=== PATIENT | female | born 2000 | race Caucasian/White ===

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

== ENCOUNTER → 2019-04-17 | Outpatient (CLI) | payer OTHER ==
[~2019-04-17] MED LIST changes: +ESCI20 PO; +LAMO100 PO; +LORA1 PO; +TRAZ100 PO
[2019-04-17 17:20] LABS: U Amphetamine Screen Not Detected; U Barbituate Screen Not Detected; U Benzodiazapine Screen Not Detected; U Buprenorphine Screen Not Detected; U Cannabinoids Screen DETECTED; U Cocaine Screen Not Detected; U Methadone Screen Not Detected; U Methamphetamine Screen Not Detected; U Opiates Screen Not Detected; U Oxycodone Screen Not Detected; U Phencyclidine Screen Not Detected; U Propoxyphene Screen Not Detected
== END ==
LOC: LAB SHORT 16:35 → LAB 16:35
PROVIDERS: Psychiatry & Neurology Psychiatry
DX: Z51.81 Encounter for therapeutic drug level monitoring (principal); Z79.899 Other long term (current) drug therapy
CPT/HCPCS: G0480

== ENCOUNTER → 2019-09-26 | Outpatient (CLI) | payer OTHER ==
[2019-09-26 19:21] LABS: U Amphetamine Screen DETECTED; U Barbituate Screen Not Detected; U Benzodiazapine Screen Not Detected; U Buprenorphine Screen Not Detected; U Cannabinoids Screen DETECTED; U Cocaine Screen Not Detected; U Methadone Screen Not Detected; U Methamphetamine Screen Not Detected; U Opiates Screen Not Detected; U Oxycodone Screen Not Detected; U Phencyclidine Screen Not Detected; U Propoxyphene Screen Not Detected
== END ==
LOC: LAB 17:25 → LAB SHORT 17:25
PROVIDERS: Registered Nurse
DX: Z51.81 Encounter for therapeutic drug level monitoring (principal); Z79.899 Other long term (current) drug therapy

== ENCOUNTER 2024-12-04 10:10 | Observation (INO) | payer OTHER ==
[~2024-12-04] VITALS: Ht 170.2 cm; Wt 127.0 kg
[~2024-12-04 10:10] MED LIST changes: +ARIPIPRAZOLE2 M1 PO; +HYDPAM50 PO
[2024-12-04 11:03] VITALS: BP 99/62
[2024-12-04 11:34] LABS: Source, Urine Clean Catch
[2024-12-04 11:41] LABS: Appearance, Urine Hazy (Clear); Bilirubin, Urine Neg (Neg); Blood, Urine 1+ (Neg); Color, Urine Yellow (P-Yellow); Glucose Qualitative, Urine Neg (Neg); Ketones, Urine Neg (Neg); Leukocyte Esterase, Urine 2+ (Neg); Nitrite, Urine Neg (Neg); Protein, Urine Neg (Neg); Urobilinogen, Urine NORM (Normal)
[2024-12-04 11:53] LABS: Amorphous Mod (0-Heavy); Bacteria Many /hpf; Squamous Epithelial Cells Many /hpf (Few)
[2024-12-04 11:54] LABS: U Amphetamine Screen Not Detected; U Barbituate Screen Not Detected; U Benzodiazapine Screen Not Detected; U Buprenorphine Screen Not Detected; U Cannabinoids Screen DETECTED; U Cocaine Screen DETECTED; U Methadone Screen Not Detected; U Methamphetamine Screen Not Detected; U Opiates Screen Not Detected; U Phencyclidine Screen Not Detected
[2024-12-04 11:55] LABS: U Oxycodone Screen Not Detected
[2024-12-04 12:05] LABS: BASOPHILS ABSOLUTE AUTO 0.03 K/mm3 (0.00-0.23); BASOPHILS PERCENT AUTO 0 % (0-2); EOSINOPHILS ABSOLUTE AUTO 0.17 K/mm3 (0.00-0.68); EOSINOPHILS PERCENT AUTO 2 % (0-6); Hematocrit 35.7 % (33.0-51.0); Hemoglobin 11.7 g/dL (11.5-16.0); IMMATURE GRAN ABSOLUTE AUTO 0.04 K/mm3 (0.00-0.10); IMMATURE GRAN PERCENT AUTO 0 % (0-1); LYMPHOCYTES ABSOLUTE AUTO 2.53 K/mm3 (0.84-5.20); LYMPHOCYTES PERCENT AUTO 26 % (21-46); MONOCYTES ABSOLUTE AUTO 0.38 K/mm3 (0.16-1.47); MONOCYTES PERCENT AUTO 4 % (4-13); Mean Corpuscular HGB 30.4 pg (26.0-34.0); Mean Corpuscular HGB Conc 32.8 g/dL (31.5-36.5); Mean Corpuscular Volume 93 fL (80-100); Mean Platelet Volume 9.8 fL (9.1-12.4); NEUTROPHILS ABSOLUTE AUTO 6.53 K/mm3 (1.96-9.15); NEUTROPHILS PERCENT AUTO 68 % (41-73); Platelet Count 253 K/mm3 (150-400); RDW Coefficient Variation 12.2 % (11.7-14.2); RDW Standard Deviation 41.7 fL (35.1-46.3); Red Blood Cell Count 3.85 M/mm3 (3.80-5.20); White Blood Cell Count 9.68 K/mm3 (4.00-11.30)
[2024-12-04 12:32] LABS: Acetaminophen, Random <2.0 ug/mL (10.0-30.0); Ethanol (Alcohol), Blood, Med <3 mg/dL; Salicylate <1.7 mg/dL (2.8-20.0)
[2024-12-04 12:33] LABS: Alanine Aminotransfer (ALT/SGP 26 U/L (12-78); Albumin, Blood 3.6 g/dL (3.4-5.0); Albumin/Globulin Ratio 1.3 (0.8-1.8); Alk Phos 57 U/L (50-136); Anion Gap 7 mmol/L (3-11); Aspartate Aminotrans (AST/SGOT 14 U/L (12-37); Bilirubin, Total 0.4 mg/dL (0.1-1.0); Blood Urea Nitrogen 6 mg/dL (8-24); Bun/Creatinine Ratio 7.2 (12.0-20.0); CO2, Blood 26 mmol/L (21-32); Chloride, Blood 107 mmol/L (98-108); Creatinine, Blood 0.84 mg/dL (0.40-1.00); Globulin, Blood 2.7 g/dL (2.2-4.0); Glomerular Filtration Rate 99 (60-); Glucose, Blood 91 mg/dL (70-99); Sodium, Blood 136 mmol/L (136-145); Total Protein, Blood 6.3 g/dL (6.4-8.2)
== END 2024-12-04 23:00 | disposition home or self-care (01) ==
LOC: ER 10:10 → EOR 10:11
PROVIDERS: Student in an Organized Health Care Education/Training Program; ADMIT Student in an Organized Health Care Education/Training Program
DX: F32.9 Major depressive disorder, single episode, unspecified (principal); R45.851 Suicidal ideations; F17.210 Nicotine dependence, cigarettes, uncomplicated; Z79.899 Other long term (current) drug therapy
CPT/HCPCS: 80053; 80320; 81001; 81025; 84702; 85025; 87086; 93005; 93010; 99285-25; G0378; G0480

== ENCOUNTER 2024-12-04 12:40 | Inpatient (IN) | payer OTHER ==
[~2024-12-04] VITALS: Ht 170.2 cm; Wt 135.0 kg
[2024-12-04] MEDS ORDERED: HydrOXYzine Pamoate 50 MG Cap PO PRN (14:25)
[2024-12-04] MEDS ORDERED: Calcium Carbonate 500 MG Tab Chew PO PRN (14:30)
[2024-12-04] MEDS ORDERED: Ibuprofen 600 MG Tab PO PRN (14:30)
[2024-12-04] MEDS ORDERED: OLANZapine ODT 10 MG Tab MM PRN (14:30)
[2024-12-04] MEDS ORDERED: Polyethylene Glycol 3350 17 gm PO PRN (14:30)
[2024-12-04] MEDS ORDERED: TraZODone HCl 50 MG Tab PO PRN (14:30)
[2024-12-04] MEDS ORDERED: Melatonin 3 MG Tab PO PRN (14:30)
[2024-12-04] MEDS ORDERED: Aluminum Hydroxide 320MG/5ML 473 ML PO PRN (14:35)
[2024-12-04] MEDS ORDERED: Acetaminophen 325 MG TABLET PO PRN (14:35)
[2024-12-04] MEDS ORDERED: Ondansetron 4 MG SoluTab MM PRN (14:40)
[2024-12-04 15:11] VITALS: BP 109/64
[2024-12-04 15:34] VITALS: BP 109/64
--- NOTE | 2024-12-04 17:53 | NUR ---
ADMIT NOTE: PT ADMITTED TO THE U AT 1501. PT ADMITTED FROM THE [facility] ED. PT IS A/O X4. PT IS TEARY AND EASILY COULD CRY. PT STATES THAT SHE IS SI" A LITTLE BIT". HER PLAN WAS TO GATHER ALL HER PILLS AND TAKE THEM ALL AT ONCE. DENIES HI, AND AVH. PT HAD AN "YESTERDAY" AND HAS BEEN HAVING SI INCREASEING OVER THE 2-3 MONTHS. PT FELT SHE IS UNSTABLE AT THIS TIME AND DECIDED TO COME IN FOR HELP. HAS AVOIDANT EYE CONTACT. SOFT VOICE. PTIS ABLE TO COMMUNICATE IN FULL SENTENCES AND IS ENGAGED. PT DID NOT EXSPRESS HER FEELINGS OF THE . PT HAS NO CHILDREN. STATES SHE HAS A GOOD SUPPORT SYSTEM. PT GIVEN TOUR OF THE UNIT AND TOLD OF EXPECTIONS FOR UNIT.; TAKE MEDS, PARICIPATE IN GROUPS, SHOWER, EAT MEALS AND TO ASK FOR HELP WHEN NEEDED. REASSURANCE GIVEN THAT STAFF IS HERE TO HELP. WILL CONTINUE TO MONITOR.
[2024-12-04] MEDS ORDERED: Nicotine Polacrilex 2 MG Gum PO PRN (18:25)
[2024-12-04 20:07] VITALS: BP 103/52
[2024-12-04] MEDS ORDERED: ARIPiprazole 10 MG Tab PO SCH (21:00)
--- NOTE | 2024-12-05 04:15 | NUR ---
SHIFT SUMMARY PT LAYING IN BED AT START OF SHIFT, AWAKES EASILY. SHE STATES HE MOOD IS "OKAY". PT ADMITS TO "A LITTLE SI", BUT STATES SHE HAS NO PLAN OR INTENT WHILE IN BHU. PT FLAT AFFECT, APPEARS DEPRESSED AND SAD. SHE HAD EVENING SNACK, WAS COMPLIANT WITH MEDICATIONS. RECEIVED PRN TRAZODONE X2 AND HAS APPEARED TO SLEEP THROUGHOUT THE NIGHT, WITH RESPIRATIONS CONFIRMED. Q15 MINUTE CHECKS TO CONTINUE PER UNIT PROTOCOL/PT SAFETY.
[2024-12-05] MEDS ORDERED: Multivitamins 1 Tab PO SCH (09:00)
[2024-12-05] MEDS ORDERED: Citalopram Hydrobromide 20 MG Tab PO SCH (09:00)
--- NOTE | 2024-12-05 11:56 | NUR ---
PT A/O X4. PLESANT AND COOPERATIVE. PT APPEARS TO BE SAD AND DEPRESSED. AVOIDS EYE CONTACT, LOOKS AWAY. SI" A LITTLE BIT". DENIES HI, AND AVH. PT EXPRESSES THAT SHE IS TAKING UP SPACE FOR SOMEONE ELSE. SHE HAS A FLAT AFFECT. SHE SAYS THAT SHE IS GLAD THAT SHE IS ALIVE, BUT AT THE SAME TIME WISHES SHE "WASN"T". VOICE TONE IS REALLY SOFT. WILL CONTNUE TO MONITOR.
--- NOTE | 2024-12-05 17:17 | NUR ---
SHIFT SUMMARY: PT A/O X4. PLEASANT AND COOPERTIVE. STAYED IN ROOM MOST OF THE DAY. FELT TIRED TODAY. HER NATIONAL SALES ASSOCIATE CAME BY TO SEE HER THEN HER MOTHER CAME FOR A VISIT. PT IS SI" A LITTLE" DENIES HI AND AVH. NO PLAN AT THIS TIME. PT'S MOOD IS SAD AND DEPRESSED. ISOLATES SELF TO ROOM. UP FOR MEALS AND MED COMPLIANT. WILL COTINUE TO MONITOR.
[2024-12-05 19:16] VITALS: BP 115/68
[2024-12-05] MEDS ORDERED: Lithium Carbonate 300 MG TabCR PO SCH (21:00)
--- NOTE | 2024-12-06 04:04 | NUR ---
SHIFT SUMMARY PT IN BED AT START OF SHIFT, AWAKES EASILY. DENIES ANY CURRENT SI OR THOUGHTS OF SELF HARM. PT STATES SHE JUST FEELS "NUMB". SHE HAS A FLAT AFFECT AND APPEARS SAD. SHE DECLINED EVENING SNACK. SHE WAS COMPLIANT WITH MEDICATIONS AND RECEIVED PRN TRAZODONE X1. SHE REMAINED IN HER ROOM AND HAS APPEARED TO SLEEP THROUGHOUT THE NIGHT. Q15 MINUTE CHECKS TO CONTINUE PER UNIT PROTOCOL/PT SAFETY.
[2024-12-06 07:54] LABS: CHOL/HDL RATIO 3.3; Cholesterol 156 mg/dL (50-200); HDL Cholesterol 47 mg/dL (>39); LDL/HDL RATIO 1.7; Low Density Lipoprotein Chol 81 mg/dL (0-110); Triglycerides 142 mg/dL (30-140); Very Low Density Lipoprot Chol 28 mg/dL (6-28)
[2024-12-06 08:08] VITALS: BP 116/74
--- NOTE | 2024-12-06 15:57 | NUR ---
SHIFT SUMMARY PT DENIES ANY HI/AVTH THIS SHIFT. SHE WAS COMPLIANT WITH ALL MEDICATIONS AND ATTENDED GROUPS TODAY. SHE HAS BEEN CALM AND COOPERATIVE THIS SHIFT. SHE DID EXPRESS THAT SHE WAS HAVING SOME SI WITHOUT A PLAN OR INTENT, DESCRIBES IT MOSTLY JUST THOUGHTS OF NOT WANTING TO BE AROUND ANYMORE. PT STATES SHE HAS NO INTENTION AND JUST FEELS "DOWN." PT WAS MONITORED Q15 PER UNIT PROTOCAL.
[2024-12-06 20:48] VITALS: BP 115/75
[2024-12-06] MEDS ORDERED: Lithium Carbonate 300 MG TabCR PO SCH (21:00)
--- NOTE | 2024-12-07 04:24 | NUR ---
SHIFT SUMMARY PATIENT UP IN MILIEU WATCHING TV WITH PEERS. DENIES HI, OR AVH. VERBALIZED SI THOUGHTS CONTINUE, NO PLAN TO HARM SELF HERE. REQUESTING INFORMATION REGARDING HER MEDICATIONS, PRINT OUTS GIVEN FOR ABILIFY, LITHIUM, AND CELEXA FROM UP TO DATE. AFTER 2ND TRAZODONE PATIENT APPEARS TO BE SLEEPING WELL. AWAKE AT 0330 REQUESTING PERIPADS AND FRESH UNDERWEAR AND PANTS, DUE TO VAGINAL BLEEDING. PATIENT NOW BACK TO BED AND APPEARS TO BE SLEEPING RESP EVEN AND UNLABORED. CONTINUE TO MONITOR Q15MIN
[2024-12-07 08:09] VITALS: BP 122/83
--- NOTE | 2024-12-07 17:23 | NUR ---
SHIFT SUMMARY: PT ALERT, ORIENTED AND COOPERATIVE WITH CARE. DENIES SI, HI AND AVH. PT MEDICATED WITH PRN PER EMAR FOR C/O CRAMPING THAT SHE RATED AT 4/10. PT ENGAGED IN UNIT MILIEU, WAS TALKATIVE WITH STAFF, PARTICIPATED IN MEALS, SPENT TIME IN THE DAY ROOM AND PATIO.
[2024-12-07 21:44] VITALS: BP 119/76
--- NOTE | 2024-12-08 04:17 | NUR ---
SHIFT SUMMARY: PT A/O X4. UP IN HER ROOM ON BED AT THE BEGINNING OF THE SHIFT. WENT TO HAVE SNACK AND TO WRAP UP GROUP. PT HAD SOME SMALL CRAMPING WHEN ASKED BUT DECLINED OFFER OF MEDICATION FOR PAIN. PLEASANT AND COOPERATIVE. DENIES SI, HI, AND AVH THIS EVEVNING. WILL CONTINUE TO MONITOR.
[2024-12-08 08:23] VITALS: BP 138/75
[2024-12-08 15:35] LABS: Lithium <0.20 mmol/L (0.60-1.20)
--- NOTE | 2024-12-08 16:28 | NUR ---
SHIFT SUMMARY: PT ALERT, ORIENTED AND COOPERATIVE WITH CARE. PT COMPLIANT WITH MEDICATIONS. STATES THAT SHE IS HAVING TROUBLE FEELING LIKE SHE WANTS TO LIVE BUT DENIED SI, PLAN OR INTENT. PT TEARFUL AND C/O INCREASED ANXIETY, MEDICATED WITH VISTRAIL PRN PER EMAR. PT ATTENDED GROUPS AND WAS PRESENT ON THE UNIT. SPENT TIME IN THE DAY ROOM WATCHING TV, TALKING WITH STAFF AND PEERS, COLORING AND PUTTING TOGETHER A PUZZLE.
[2024-12-08] MEDS ORDERED: Lithium Carbonate 450 MG TabCR PO SCH (21:00)
[2024-12-08] MEDS ORDERED: ARIPiprazole 5 MG Tab PO SCH (21:00)
[2024-12-08 22:05] VITALS: BP 129/91
--- NOTE | 2024-12-09 03:43 | NUR ---
SHIFT SUMMARY: PATIENT IS A/OX4, ABLE TO VOICE NEEDS AND HAVE MEANINGFUL CONVERSATION. SHE IS INTERACTING WITH OTHER PATIENTS AND STAFF APPROPRIATELY. SHE CURRENTLY DENIES SI,VH, AH. SHE DOES STATE SHE STILL FEELS DEPRESSED AND QUESTIONS HERSELF TO "WHY DO I GET THIS WAY"? SHE DOES FEEL LIKE SHE IS MAKING PROGRESS AND IS FEELING BETTER. SHE IS COMPLIANT WITH MEDICATIONS AND POC. SHE DID HAVE SNACK AND REQUESTED HER PRN SLEEPING MEDS. SHE DID SLEEP THROUGH THE NIGHT. NO NOTED BEHAVIORS OR ISSUES.
[2024-12-09 08:19] VITALS: BP 128/83
--- NOTE | 2024-12-09 13:37 | NUR ---
VALERIE TENORIO CALLED, SHE IS PT ASSIGNED GEOSPATIAL ENGINEER THROUGH [facility] OFFICE, SHE STATES SHE CAN TRANSPORT PT HOME WHEN SHE IS DISCHARGED. HER CONTACT #[phone].
--- NOTE | 2024-12-09 17:19 | NUR ---
SHIFT SUMMARY: PT HAS PARTICIPATED IN ALL GROUP SESSIONS AND MEALS TODAY. CONTINUES TO VERBALIZE NO SI/HI. NO HALLUCINATIONS. ABLE TO VERBALIZE PLANS FOR AFTER DISCHARGE. EXPRESSES GOAL ORIENTED THINKING. HAD 1:1 SESSION WITH RAFAEL THIS AFTERNOON. NO CONCERNS EXPRESSED.
[2024-12-09 20:00] VITALS: BP 118/96
--- NOTE | 2024-12-10 04:57 | NUR ---
SHIFT SUMMARY: ASSUMED CARE FROM PRIOR SHIFT. PATIENT IS A/OX4, ABLE TO VOICE NEEDS AND HAVE MEANINGFUL CONVERSATION. SHE DENIES SI, AH AND VH. SHE STILL FEELS DEPRESSED HOWEVER, THIS IS IMPROVING. SH WOULD LIKE TO TALK TO HER SW, AT HER CLINIC LATER TODAY. I ENCOURAGED HER TO ASK TO USE THE PHONE SO SHE COULD CALL HER. SHE IS COMPLIANT WITH MEDICATIONS AND POC. SHE DID TAKE HER PRN SLEEPING MEDICATIONS, SHE DID SLEEP THROUGH THE NIGHT. NO NOTED BEHAVIORS OR ISSUES. CONTINUE WITH 15 MIN SAFETY CHECKS.
[2024-12-10 08:07] VITALS: BP 129/78
--- NOTE | 2024-12-10 12:23 | NUR ---
IMPORTANT HOSPITAL DISCHARGE INFORMATION Patient to be picked up by her mother on 12/11 at 1100. Patient's social sciences lecturer, Lisa Rivera at [phone] to assist patient with outpatient psychiatry and to obtain additional outpatient supports and resources. student accounts coordinator, Clementina Bridges at [phone] will also contact patient to discuss aftercare and follow up
--- NOTE | 2024-12-10 17:25 | NUR ---
SHIFT NOTE PT DENIES ANY SI/HI/AVTH AND STATES SHE IS READY TO D/C HOME AND FEELS HOPEFUL. SHE SPOKE TO HER SW FROM HER [facility] TO UPDATE HER AND FOR ASSISTANCE IN ARRANGING AFTER CARE NEEDED. PT ATTENDED GROUPS, INTERACTED WITH HER PEERS IN A POSITIVE MANNER, AND WAS COMPLIANT WITH MEDS THIS SHIFT. PLANNING FOR D/C HOME TOMORROW. HER MOTHER IS SUPPOSED TO TRANSPORT HER AT 1100 ON 12/11/24.
[2024-12-10 20:00] VITALS: BP 121/60
--- NOTE | 2024-12-11 04:06 | NUR ---
SHIFT SUMMARY PATIENT UP IN MILIEU WATCHING TV. DENIES SI, HI, OR AVH. VERBALIZED FEELING "ANTSY" AND THINKING ABOUT GOING HOME TOMORROW. HYDROXYZINE GIVEN. AFTER SNACK AND HS MEDICATIONS PATIENT APPEARS TO BE SLEEPING WELL WITH RESP EVEN AND UNLABORED. CONTINUE TO MONITOR Q15MIN
[2024-12-11] MEDS ORDERED: [UNRECOGNIZED DRUG - CODE] PO (07:47)
[2024-12-11] MEDS ORDERED: MELA3 PO (07:48)
[2024-12-11] MEDS ORDERED: CELEXA40 M1 PO (07:49)
[2024-12-11 08:14] VITALS: BP 129/81
--- NOTE | 2024-12-11 11:10 | NUR ---
DISCHARGE NOTE PT WAS MEDICATED WITH VISTARIL PRIOR TO D/C HOME PER PT C/O INCREASING ANXIETY R/T D/C HOME. CALLED [facility] AND VERIFIED THE MEDICATIONS ARE READY FOR PT TO P/U. PT GIVEN D/C PACKET AND D/C FORM SIGNED. PT STATES UNDERSTANDING AND ALL QUESTIONS ANSWERED. PT WAS GIVEN BELONGINGS BY MHA AND SHE DRESSED HERSELF IN OWN CLOTHING. PT AMBULATED OUT OF FACILITY WITH ALL BELONGINGS AND FORMS, TO BE TRANSPORTED HOME BY HER MOTHER.
== END 2024-12-11 11:05 | disposition home or self-care (01) | DRG 885 ==
LOC: BHU 12:40
PROVIDERS: ADMIT Student in an Organized Health Care Education/Training Program
DX: F31.81 Bipolar II disorder (principal); F18.20 Inhalant dependence, uncomplicated; F14.20 Cocaine dependence, uncomplicated; R45.851 Suicidal ideations; F60.3 Borderline personality disorder; F12.10 Cannabis abuse, uncomplicated; F17.210 Nicotine dependence, cigarettes, uncomplicated; F10.10 Alcohol abuse, uncomplicated; Z79.899 Other long term (current) drug therapy; Z79.1 Long term (current) use of non-steroidal anti-inflammatories (NSAID)
CPT/HCPCS: 36415; 80061; 80178; 83036; 84443; A9270

== ENCOUNTER 2025-01-26 14:17 | Observation (INO) | payer OTHER ==
[~2025-01-26] VITALS: Ht 170.2 cm; Wt 133.8 kg
[~2025-01-26 14:17] MED LIST changes: +CELEXA40 M1 PO; +MELA3 PO; +[UNRECOGNIZED DRUG - CODE] PO
[2025-01-26 14:41] LABS: BASOPHILS ABSOLUTE AUTO 0.05 K/mm3 (0.00-0.23); BASOPHILS PERCENT AUTO 1 % (0-2); EOSINOPHILS ABSOLUTE AUTO 0.12 K/mm3 (0.00-0.68); EOSINOPHILS PERCENT AUTO 1 % (0-6); Hematocrit 38.1 % (33.0-51.0); Hemoglobin 12.4 g/dL (11.5-16.0); IMMATURE GRAN ABSOLUTE AUTO 0.03 K/mm3 (0.00-0.10); IMMATURE GRAN PERCENT AUTO 0 % (0-1); LYMPHOCYTES ABSOLUTE AUTO 2.24 K/mm3 (0.84-5.20); LYMPHOCYTES PERCENT AUTO 26 % (21-46); MONOCYTES ABSOLUTE AUTO 0.49 K/mm3 (0.16-1.47); MONOCYTES PERCENT AUTO 6 % (4-13); Mean Corpuscular HGB 30.2 pg (26.0-34.0); Mean Corpuscular HGB Conc 32.5 g/dL (31.5-36.5); Mean Corpuscular Volume 93 fL (80-100); Mean Platelet Volume 10.2 fL (9.1-12.4); NEUTROPHILS ABSOLUTE AUTO 5.54 K/mm3 (1.96-9.15); NEUTROPHILS PERCENT AUTO 65 % (41-73); Platelet Count 251 K/mm3 (150-400); RDW Coefficient Variation 13.1 % (11.7-14.2); RDW Standard Deviation 44.6 fL (35.1-46.3); Red Blood Cell Count 4.11 M/mm3 (3.80-5.20); White Blood Cell Count 8.47 K/mm3 (4.00-11.30)
[2025-01-26 15:08] LABS: Source, Urine Clean Catch
[2025-01-26 15:13] LABS: Acetaminophen, Random <2.0 ug/mL (10.0-30.0); Alanine Aminotransfer (ALT/SGP 22 U/L (12-78); Albumin, Blood 3.3 g/dL (3.4-5.0); Albumin/Globulin Ratio 1.1 (0.8-1.8); Alk Phos 63 U/L (50-136); Anion Gap 6 mmol/L (3-11); Aspartate Aminotrans (AST/SGOT 11 U/L (12-37); Bilirubin, Total 0.4 mg/dL (0.1-1.0); Blood Urea Nitrogen 8 mg/dL (8-24); Bun/Creatinine Ratio 10.5 (12.0-20.0); CO2, Blood 27 mmol/L (21-32); Calcium, Blood 8.4 mg/dL (8.5-10.1); Chloride, Blood 111 mmol/L (98-108); Creatinine, Blood 0.76 mg/dL (0.40-1.00); Ethanol (Alcohol), Blood, Med <3 mg/dL; Glomerular Filtration Rate 111 (60-); Glucose, Blood 86 mg/dL (70-99); Salicylate <1.7 mg/dL (2.8-20.0); Sodium, Blood 140 mmol/L (136-145); Total Protein, Blood 6.3 g/dL (6.4-8.2)
[2025-01-26 15:15] LABS: Appearance, Urine Clear (Clear); Bilirubin, Urine Neg (Neg); Blood, Urine Neg (Neg); Color, Urine Yellow (P-Yellow); Glucose Qualitative, Urine Neg (Neg); Ketones, Urine Neg (Neg); Leukocyte Esterase, Urine Neg (Neg); Nitrite, Urine Neg (Neg); Protein, Urine Neg (Neg); Urobilinogen, Urine NORM (Normal)
[2025-01-26 15:26] LABS: Lithium 0.85 mmol/L (0.60-1.20)
[2025-01-26 15:26] LABS: U Amphetamine Screen Not Detected; U Barbituate Screen Not Detected; U Benzodiazapine Screen Not Detected; U Buprenorphine Screen Not Detected; U Cannabinoids Screen DETECTED; U Cocaine Screen Not Detected; U Methadone Screen Not Detected; U Methamphetamine Screen Not Detected; U Opiates Screen Not Detected; U Oxycodone Screen Not Detected; U Phencyclidine Screen Not Detected
[2025-01-26] MEDS ORDERED: Ondansetron HCl 2 MG / ML 2ML Vial IV ONE (17:20)
[2025-01-26] MEDS ORDERED: Furosemide 10 MG / ML 2ML Vial IV ONE (17:20)
[2025-01-26 20:39] LABS: Lithium 1.72 mmol/L (0.60-1.20)
[2025-01-26] MEDS ORDERED: NS 1,000 ML IV SCH (22:20)
[2025-01-27 02:40] LABS: Bun/Creatinine Ratio 9.2 (12.0-20.0); Calcium, Blood 8.7 mg/dL (8.5-10.1); Creatinine, Blood 0.87 mg/dL (0.40-1.00); Potassium, Blood 3.7 mmol/L (3.5-5.5)
[2025-01-27 03:49] LABS: Lithium 1.11 mmol/L (0.60-1.20)
[2025-01-27 07:00] VITALS: BP 108/72
[2025-01-27 07:48] LABS: Lithium 0.89 mmol/L (0.60-1.20)
== END 2025-01-27 11:00 | disposition other institution (70) ==
LOC: ER 14:17 → EOR 14:18 → EDBEDREQSVC 01-27 08:58 → EDBEDREQ 01-27 08:58 → EDBEDREQTM 01-27 08:58 → EOR 01-27 11:00
PROVIDERS: Emergency Medicine; Student in an Organized Health Care Education/Training Program; ADMIT Emergency Medicine
DX: T14.91XA Suicide attempt, initial encounter (principal); T43.592A Poisoning by other antipsychotics and neuroleptics, intentional self-harm, initial encounter; T56.892A Toxic effect of other metals, intentional self-harm, initial encounter; S50.812A Abrasion of left forearm, initial encounter; S50.811A Abrasion of right forearm, initial encounter; F32.9 Major depressive disorder, single episode, unspecified; F17.210 Nicotine dependence, cigarettes, uncomplicated; Z79.899 Other long term (current) drug therapy; X58.XXXA Exposure to other specified factors, initial encounter
CPT/HCPCS: 80048; 80053; 80178; 80320; 81003; 81025; 85025; 93005; 93010; 96374; 99285-25; G0378; G0480; J2405; J7030

== ENCOUNTER 2025-01-27 08:12 | Inpatient (IN) | payer OTHER ==
[~2025-01-27] VITALS: Ht 170.2 cm; Wt 132.1 kg
[2025-01-27] MEDS ORDERED: OLANZapine ODT 10 MG Tab MM PRN (09:30)
[2025-01-27] MEDS ORDERED: HydrOXYzine Pamoate 50 MG Cap PO PRN (09:30)
[2025-01-27] MEDS ORDERED: Haloperidol 5 MG Tab PO PRN (09:30)
[2025-01-27] MEDS ORDERED: Haloperidol Lactate Inj. 5 MG/ML Injection IM PRN (09:30)
[2025-01-27] MEDS ORDERED: TraZODone HCl 50 MG Tab PO PRN (09:35)
[2025-01-27] MEDS ORDERED: LORazepam 2 MG Tab PO PRN (09:35)
[2025-01-27] MEDS ORDERED: Ibuprofen 600 MG Tab PO PRN (09:35)
[2025-01-27] MEDS ORDERED: LORazepam 2 MG/ML 1ML Injection IM PRN (09:35)
[2025-01-27] MEDS ORDERED: Ondansetron 4 MG SoluTab MM PRN (09:35)
[2025-01-27] MEDS ORDERED: Melatonin 3 MG Tab PO PRN (09:35)
[2025-01-27] MEDS ORDERED: Polyethylene Glycol 3350 17 gm PO PRN (09:35)
[2025-01-27] MEDS ORDERED: DiphenhydrAMINE HCl 50 MG Cap PO PRN (09:40)
[2025-01-27] MEDS ORDERED: Aluminum Hydroxide 320MG/5ML 473 ML PO PRN (09:40)
[2025-01-27] MEDS ORDERED: Calcium Carbonate 500 MG Tab Chew PO PRN (09:40)
[2025-01-27] MEDS ORDERED: Acetaminophen 325 MG TABLET PO PRN (09:40)
[2025-01-27] MEDS ORDERED: DiphenhydrAMINE HCl 50 MG/ML 1ML Vial IM PRN (09:40)
[2025-01-27 11:21] VITALS: BP 116/72
[2025-01-27 12:30] VITALS: BP 116/72
--- NOTE | 2025-01-27 13:11 | NUR ---
ADMISSION NOTE PT ARRIVED TO [facility] AT 1117, COMING FROM [facility] ER CRISIS UNIT. PT BELONGINGS COLLECTED AND PLACED IN STORAGE. PT SKIN CHECK COMPLETED ALONG WITH BUDDY. NOTED THAT PT DOES HAVE SUPERFICIAL CUT WRIGHT TO HER BILATERAL FORARMS, PT STS THIS WAS DONE YESTERDAY. PT WAS ADMITTED HERE TO [facility] IN MID NOVEMBER. 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 PT STS SHE INTENTIONALLY OD ON MEDICATIONS YESTERDAY, INCLUDING LITHIUM, AND THEN SAT IN HER CAR, WITH IT RUNNING IN THE GARAGE FOR APPROX 15 MINUTES. SHE DID ABORT HER PLAN AND CALLED FOR HELP. "I'M JUST SO OVERWHELMED WITH LIFE, I'M A WEAK PERSON AND MY EMOTIONS ARE SO INTENSE" PT TEARFUL DURING INTAKE. STS SHE HASN'T BEEN TAKING HER MEDICATIONS, SHE TAKES THEM AT NIGHT AND SHE DRINKS VERY HEAVILY AT NIGHT, EVERY NIGHT AND FORGETS TO TAKE THEM (TEQUILA AND BEER). PT HAS A THERAPIST SHE SAW ABOUT 2 WEEKS AGO, RANDY AT [facility]. PT WAS ORIENTED TO [facility] AND HER ROOM. SHE WILL RECIEVE Q15 MIN VISUAL SAFETY CHECKS
[2025-01-27 20:17] VITALS: BP 114/64
[2025-01-27] MEDS ORDERED: ARIPiprazole 5 MG Tab PO SCH ×2 (21:00)
--- NOTE | 2025-01-28 04:21 | NUR ---
Patient is alert and oriented times four, pleasant and somewhat communicative with her peers. She did join them for snack time prior to going to bed. Denies SI and AVTH on evening assessment. Eye contact is partial at best and affect is somewhat flat. Will continue close observation every 15 minutes for comfort and safety.
[2025-01-28 07:38] LABS: Albumin, Blood 3.8 g/dL (3.4-5.0); Albumin/Globulin Ratio 1.2 (0.8-1.8); Bilirubin, Total 0.4 mg/dL (0.1-1.0); Bun/Creatinine Ratio 10.7 (12.0-20.0); Calcium, Blood 8.5 mg/dL (8.5-10.1); Creatinine, Blood 1.03 mg/dL (0.40-1.00); Globulin, Blood 3.2 g/dL (2.2-4.0); Thyroid Stimulating Hormone 3.49 uIU/mL (0.360-4.800)
[2025-01-28 08:51] VITALS: BP 110/69
[2025-01-28] MEDS ORDERED: Citalopram Hydrobromide 20 MG Tab PO SCH (09:00)
[2025-01-28] MEDS ORDERED: Multivitamins 1 Tab PO SCH (09:00)
[2025-01-28] MEDS ORDERED: Nicotine Polacrilex 2 MG Gum PO PRN (15:35)
--- NOTE | 2025-01-28 16:46 | NUR ---
SHIFT SUMMARY PT AA&OX4. SHE IS PLEASANT AND COOPERATIVE WITH CARE. SPEECH AND EYE CONTACT ARE APPROPRIATE. SHE REPORTS HER MOOD TIRED. AFFECT IS CONGRUENT. SHE HAS BEEN UP FOR GROUPS AND MEALS. SHE IS INTERACTING WELL WITH PEERS. SHE DENIES SI, AVH. SHE REPORTS THAT SHE FEELS SHE "BIT OFF MORE THAN I COULD CHEW" BY WORKING FIVE DAYS A WEEK. SHE ALSO REPORTS SHE DID NOT TAKE MEDICATIONS AFTER DC BECAUSE SHE WAS DRINKING ALCOHOL AND DID NOT WANT TO MIX. PT EDUCATED ON MEDICATIONS AND THE IMPORTANCE OF ADHERENCE. SHE VERBALIZED UNDERSTANDING. WILL CONTINUE POC
[2025-01-28 19:38] VITALS: BP 113/71
--- NOTE | 2025-01-29 04:15 | NUR ---
SHIFT SUMMARY PT SITTING IN HALLWAY AT START OF SHIFT. PT STATES SHE NOTES HER MOOD "A WEIRD FEELING IN MY BODY". SHE WAS UNABLE TO ELABORATE ON WHAT SHE WAS FEELING. SHE DENIES ANY SI, BUT STATES SHE IS HAVING FEELINGS OF WANTING TO HIT HERSELF AND REPORTS ANXIETY. SHE DENIES ANY HALLUCINATIONS. MASS SCORE OF 4 AND PT RECEIVED ZYPREXA. SHE WAS COMPLIANT WITH MEDS AND ALSO RECEIVED PRN TRAZODONE. ON REASSESSMENT PT STATED SHE WAS FEELING BETTER AND APPEARED CALM. SHE HAD EVENING SNACK AND HAS SLEPT/RESTED MOST OF THE NIGHT WHEN NOT BEING AWAKENED BY HER ROOMMATE. Q15 MINUTE CHECKS TO CONTINUE PER PT SAFETY.
[2025-01-29 08:20] VITALS: BP 113/69
[2025-01-29 10:46] LABS: Lithium 0.21 mmol/L (0.60-1.20)
--- NOTE | 2025-01-29 17:09 | NUR ---
SHIFT SUMMARY PT AA&O TO PERSON PLACE AND SITUATION. SHE IS PLEASANT AND COOPERATIVE WITH CARE. SHE IS COMPLIANT WITH MEDICATIONS AND DENIES ANY SIDE EFFECTS. SHE REPORTS THAT SHE IS FEELING BETTER AND HAS BEEN JOURNALING. SHE DENIES SI, AVH. SHE HAS BEEN UP FOR SHOWERS, MEALS AND GROUP. SPEECH AND EYE CONTACT APPROPRIATE. SHE DENIES ANY QUESTIONS OR CONCERNS AT THIS TIME.
[2025-01-29 19:27] VITALS: BP 124/80
--- NOTE | 2025-01-30 04:05 | NUR ---
SHIFT SUMMARY PT IN BED AT START OF SHIFT, AWAKE. SHE DENIED ANY SI, HI, THOUGHTS OF SELF HARM OR HALLUCINATIONS. SHE REPORTED FEELING ANXIOUS AND THAT SHE HAD BEEN THINKING ALOT ABOUT "WEIRD STUFF", WOULD NOT ELABORATE. PT WITH FLAT AFFECT AND APPEARS SAD AND DEPRESSED. MASS SCORE OF 1 AND PT RECEIVED VISTARIL. SHE WATCHED TV IN GROUP ROOM, HAD EVENING SNACK. SHE WAS COMPLIANT WITH MEDS AND RECEIVED PRN TRAZODONE. SHE WENT TO BED AROUND 2130 AND IS STILL CURRENTLY IN BED. Q15 MINUTE CHECKS TO CONTINUE PER PT SAFETY.
[2025-01-30 08:52] VITALS: BP 128/87
--- NOTE | 2025-01-30 09:29 | NUR ---
SHIFT ASSESSMENT: PT DENIED SI, HI, AVH AND PHYSICAL PAIN. SHE ENDORSED ANXIETY 1/10w. SHE DESCRIBED HER MOOD , "RIGHT NOW IT'S PRETTY GOOD, I HAVE A LOT ON MY MIND...BUT I THINK IT'S GONNA GET FIGURED OUT." WHEN ASKED WHAT BROUGHT HER INTO THE HOSPITAL SHE REPLIED, "LIFE GETS HARD AND OVERWHELMING AND THEN I DON'T WANT TO BE ALIVE." SHE REPORTED "I WISH I HAD A BELIEF SYSTEM THAT WOULD HELP ME BE GROUNDED." PT IS PLEASANT AND COOPERATIVE WITH CARE. SHE IS ACTIVE IN GROUPS AND THE PT MILIEU.
[2025-01-30 10:57] LABS: Albumin, Blood 3.9 g/dL (3.4-5.0); Albumin/Globulin Ratio 1.1 (0.8-1.8); Bilirubin, Total 0.4 mg/dL (0.1-1.0); Bun/Creatinine Ratio 13.6 (12.0-20.0); Creatinine, Blood 0.81 mg/dL (0.40-1.00); Globulin, Blood 3.5 g/dL (2.2-4.0); Potassium, Blood 3.8 mmol/L (3.5-5.5); Total Protein, Blood 7.4 g/dL (6.4-8.2)
--- NOTE | 2025-01-30 17:50 | NUR ---
PT HAS ATTENDED GROUPS TODAY AND BEEN ACTIVE IN THE PT MILIEU. SHE REMARKED THAT SHE MET WITH THE RESIDENTIAL SUBCONTRACTOR AND SEEMED VERY HAPPY WITH THE PROGRESS THEY MADE TOGETHER. SHE HAS BEEN PLEASANT AND COOPERATIVE WITH CARE.
[2025-01-30 19:23] VITALS: BP 131/85
--- NOTE | 2025-01-31 04:13 | NUR ---
SHIFT SUMMARY PT SITTING OUTSIDE IN THE PATIO AREA AT THE START OF SHIFT. SHE REPORTED HER MOOD ANXIOUS AND FEELS "WEIRD" WITH "SCATTERED THOUGHTS". SHE STATES THAT SHE HAS HAD THOUGHTS OF SELF HARM (WANTING TO HIT HERSELF) DURING THE DAY, BUT NONE AT TIME OF ASSESSMENT. SHE DENIES ANY SI, HI OR HALLUCINATIONS. PT TEARFUL AT TIMES. SHE VOICED CONCERN THAT SHE IS WORRIED THAT SHE IS , STATES SHE HAD RISKY BEHAVIOR PRIOR TO ADMISSION AND DOESN'T WANT TO GET ANOTHER . INFORMED PT THAT TEST AT THE TIME OF ADMISSION WAS NEGATIVE. WILL PASS CONCERN ON IN REPORT. PT NOTED TO BE EXPERIENCING INTRUSIVE THOUGHTS, STATES SHE IS HAVING A LOT OF NEGATIVE SELF TALK. PT ANXIOUS AND RECEIVED PRN MEDS OF VISTARTIL AND ZYPREXA. SAT IN SENSORY ROOM WITH PT AND PROVIDED THERAPEUTIC COMMUNICATION. PT REPORTED FEELING BETTER. SHE WATCHED TV AFTER SNACK AND WENT TO BED AROUND 2145. Q15 MINUTE CHECKS TO CONTINUE PER PT SAFETY.
[2025-01-31 08:55] VITALS: BP 136/91
--- NOTE | 2025-01-31 12:13 | NUR ---
IMPORTANT DISCHARGE INFORMATION PATIENT TO BE DISCHARGED 02/03/25 AT 9:30 AM. HER [facility] MULTIMEDIA PRODUCTION ASSISTANT TOM WILL BE PICKING HER UP AND TRANSPORTING HER TO [facility]. TOM CAN BE REACHED AT
--- NOTE | 2025-01-31 16:57 | NUR ---
SHIFT SUMMARY: PT ALERT, ORIENTED AND COOPERATIVE WITH CARE. DENIES SI, HI AND AVH. PT PRESENT ON THE UNIT AND PARTCIPATED IN MILIEU. ATTENDED GROUPS AND MEALS. SPENT TIME IN THE DAY ROOM WATCHING TV AND SITTING OUTSIDE. SHOWERED THIS AM AND WAS COMPLIANT WITH MEDICATIONS. SHE REQUESTED TO HAVE A TEST RAN. URINE WAS COLLECTED AND TAKEN TO LAB. PT UPDATED OF NEGATIVE PREG RESULTS.
[2025-01-31 20:36] VITALS: BP 123/78
[2025-01-31] MEDS ORDERED: Lithium Carbonate 300 MG TabCR PO SCH (21:00)
--- NOTE | 2025-02-01 05:21 | NUR ---
SHIFT SUMMARY: PT PLESANT AND COPERATIVE. UP IN DINING AREA FOR DINNER AT THE BEGINNING OF SHIFT. PT IS IN A HPPY MOOD.. SHE WILL BE DISCHARGING TO [facility] IN [place]. SHE FEELS THE NEW START WILL BE GOOD FOR HER.SHE WANTS TO :START MY LIFE OVER AGAIN".. SLEPT WELL UNTIL 0340 AND SHE GOT UP TO ASK FOR SOMETHING FOR SLEEP. VISTARIL GIVEN, MED AFFECTIVE PT WENT BACK TO SLEEP. WILL CONTINUE TO MONITOR.
[2025-02-01 06:59] VITALS: BP 110/83
--- NOTE | 2025-02-01 08:04 | NUR ---
SHIFT ASSESSMENT: PT DENIED SI, HI, AVH AND PHYSICAL PAIN. SHE ENDORSED ANXIETY 3-4/10w. PT'S AFFECT IS EUTHYMIC, SHE DESCRIBED HER MOOD , "ANTSY BUT GOOD." SHE GOT UP THIS MORNING MADE HER BED AND IS "LOOKING FOR THINGS TO DO :)" PT IS PLEASANT AND COOPERATIVE.
--- NOTE | 2025-02-01 17:24 | NUR ---
PT HAS BEEN ACTIVE IN THE PT MILIEU TODAY, SHE HAS BEEN PLEASANT AND COOPERATIVE WITH CARE.PT HAS HAD NO COMPLAINTS AND BEEN IN GOOD HUMOR ALL DAY.
[2025-02-01 19:51] VITALS: BP 141/79
--- NOTE | 2025-02-01 21:53 | NUR ---
PT A/O X4. PLEASANT AND COOPERATIVE. DENIES SI, HI, AND AVH. DID NOT WANT SNACK AT 1999. IS LOOKING FORWARD TO HER HOLD BEING OFF ON 02/03. SHE WILL BE GOING TO A FACILITY IN [place] FOR INPATIENT TREATMENT. MOOD IS CALM AND TIRED. WENT TO BED AROUND 2100. WILL CONTINUE TO MONITOR.
--- NOTE | 2025-02-02 04:55 | NUR ---
SHIFT SUMMARY: PATIENT CARE WAS TAKEN OVER BY THIS RN AT 0030. PATIENT WAS IN BED RESTING, AND CONTINUED TO DO SO WITH EYES CLOSED AND RESPIRATIONS CONFIRMED FOR THE REMAINDER OF THE SHIFT. CONTINUING TO MONITOR FOR SAFETY WITH Q15 MINUTE CHECKS. NO ISSUES OR CONCERNS NOTED.
[2025-02-02 07:39] VITALS: BP 122/91
--- NOTE | 2025-02-02 17:53 | NUR ---
SHIFT SUMMARY: PT ALERT, ORIENTED AND COOPERATIVE WITH CARE. SHE DENIES SI, HI AND AVH. STATES THAT SHE IS FEELING GOOD BUT A LITTLE ANXIOUS ABOUT DISCHARGING TOMORROW. DISCUSSED DISCHARGE PLAN AND TIMING. PT REQUESTED VISTARIL FOR ANXIETY THIS AFTERNOON AND WAS MEDICATED PER EMAR. SHE WAS PRESENT ON THE UNIT AND PARTICIPATED IN MILIEU. SHE SPENT TIME ON THE PATIO AND IN THE DAY ROOM TALKING WITH STAFF AND PEERS. SHE HAD A VISIT WITH HER SISTER THAT APPEARED TO GO WELL.
[2025-02-02 20:54] VITALS: BP 129/76
--- NOTE | 2025-02-03 04:24 | NUR ---
SHIFT SUMMARY: PATIENT WAS IN THE MILIEU AT THE BEGINNING OF THE SHIFT. SHE WAS OUT ON THE PATIO TALKING TO A PEER AND LAUGHING. SHE STATED THAT SHE IS EXCITED ABOUT LEAVING TOMORROW, AND FEELS THAT THINGS WILL "GO BETTER FOR ME NOW". SHE FEELS "ABLE TO HANDLE THINGS BETTER". SHE WAS ABLE TO PARTICIPATE IN NURSING ASSESSMENT AND ANSWER QUESTIONS IN A LOGICAL AND LINEAR MANNER. SHE DENIED SI, HI, A/V HALLUCINATIONS AND THOUGHTS OF SELF HARMING. SHE PARTICIPATED IN SNACK AND WRAP UP GROUP IN THE DINING AREA AT 2030. SHE WENT TO BED SHORTLY AFTER SNACK, AND WAS MEDICATION COMPLIANT. SHE REQUESTED AND WAS GIVEN PRN MEDICATION FOR ANXIETY INDUCED BY THE "EXCITEMENT AND ANXIETY" OF DISCHARGING. SHE WAS NOTED TO BE IN BED RESTING WITH EYES CLOSED AND RESPIRATIONS CONFIRMED FOR MOST OF THE NIGHT. SHE GOT UP A FEW TIMES TO CHECK THE CLOCK, AND ASKED FOR A SMALL SNACK AT ONE POINT, BUT OTHERWISE WAS IN BED RESTING. CONTINUING TO MONITOR FOR SAFETY WITH Q15 MINUTE CHECKS.
[2025-02-03 08:00] VITALS: BP 127/91
--- NOTE | 2025-02-03 09:25 | NUR ---
DISCHARGE NOTE PT AxOx4. PLEASANT AND COOPERATIVE WITH CARE. PT APPEARS CHEERFUL THIS AM, STATING SHE IS IN A "GOOD MOOD." PT IS DISCHARGING TODAY WITH PEER SUPPORT, MAGALI, FROM [facility] CALLED [facility]. SHE WILL BE TRANSPORTED TO [place] FOR HER TREATMENT. PT DENIES SI/HI AND AVTH THIS AM AND REPORTS FEELING READY FOR DC TODAY. DC INSTRUCTIONS DISCUSSED WITH PATIENT INCLUDING DC MEDS, FOLLOW UP RECOMMENDATIONS AND PATIENT EDUCATION ON DIAGNOSES AND MEDICATIONS. PT VERBALIZED UNDERSTANDING. SAFETY PLAN COMPLETED AND BELONGINGS RETURNED. PT WAS SAFELY ESCORTED OUT WITH MHA TO TRANSPORTER.
== END 2025-02-03 09:11 | DRG 885 ==
LOC: BHU 08:12
PROVIDERS: ADMIT Psychiatry & Neurology Psychiatry
DX: F31.81 Bipolar II disorder (principal); F18.20 Inhalant dependence, uncomplicated; F14.20 Cocaine dependence, uncomplicated; T43.592A Poisoning by other antipsychotics and neuroleptics, intentional self-harm, initial encounter; T56.892A Toxic effect of other metals, intentional self-harm, initial encounter; F17.210 Nicotine dependence, cigarettes, uncomplicated; Y90.0 Blood alcohol level of less than 20 mg/100 ml; F60.3 Borderline personality disorder; F10.10 Alcohol abuse, uncomplicated; F12.10 Cannabis abuse, uncomplicated; S50.812A Abrasion of left forearm, initial encounter; S50.811A Abrasion of right forearm, initial encounter; Z79.1 Long term (current) use of non-steroidal anti-inflammatories (NSAID); Z91.51 Personal history of suicidal behavior; Z79.899 Other long term (current) drug therapy; W26.8XXA Contact with other sharp object(s), not elsewhere classified, initial encounter
CPT/HCPCS: 36415; 80053; 80178; 81025; 84443; A9270